=== PATIENT | male | born 1960 | race Caucasian/White ===

== ENCOUNTER 2016-05-07 12:18 | Emergency (ER) | payer OTHER ==
[2016-05-07 12:34] VITALS: BP 117/89; PULSE 76; RESP 20; TEMP 98.5
--- NOTE | 2016-05-07 13:39 | ED ---
ENT HPI - General Chief complaint: ENT Stated complaint: ear pain Time Seen by Provider: 05/07/16 13:28 Source: patient, RN notes reviewed Mode of arrival: ambulatory Limitations: no limitations - History of Present Illness Initial comments: 56-year-old male presents emergency Department chief complaint right ear pain. Patient states his been drainage of last 2-3 days. Patient states her some discomfort. Denies any pain behind his ear. Denies headache, dizziness, fever , chills, neck pain. Patient states she has NO KNOWN DRUG ALLERGIES. Patient denies any other complaints. - Related Data Previous Rx's Medication Instructions Recorded Amoxicillin/Potassium Clav 1 tab PO Q12HR #20 tab 05/07/16 [Augmentin 875-125 Tablet] Ofloxacin 0.3% Ophth Soln [Ocuflox 10 drops RIGHT EAR BID #1 bottle 05/07/16 Ophth Soln] Review of Systems ROS Statement: Those systems with pertinent positive or pertinent negative responses have been documented in the HPI. ROS Other: All systems not noted in ROS Statement are negative. Past Medical History Past Medical History: No Reported History History of Any Multi-Drug Resistant Organisms: None Reported Past Surgical History: No Surgical Hx Reported Past Psychological History: No Psychological Hx Reported Smoking Status: Never smoker Past Alcohol Use History: None Reported Past Drug Use History: None Reported General Exam Limitations: no limitations General appearance: alert, in no apparent distress Head exam: Present: atraumatic, normocephalic, normal inspection Eye exam: Present: normal appearance, PERRL, EOMI. Absent: scleral icterus, conjunctival injection, periorbital swelling ENT exam: Present: mucous membranes moist, other (No mastoid tenderness). Absent: normal oropharynx, TM's normal bilaterally (Mild erythema to the right TM), normal external ear exam (Erythema, swelling noted to the right EAC) Neck exam: Present: normal inspection, full ROM. Absent: tenderness, meningismus, lymphadenopathy Respiratory exam: Present: normal lung sounds bilaterally. Absent: respiratory distress, wheezes, rales, rhonchi, stridor Cardiovascular Exam: Present: regular rate, normal rhythm, normal heart sounds. Absent: systolic murmur, diastolic murmur, rubs, gallop, clicks Course Vital Signs 05/07/16 12:33 Temperature 98.5 F Pulse Rate 76 Respiratory 20 Rate Blood Pressure 117/89 O2 Sat by Pulse 98 Oximetry Medical Decision Making - Medical Decision Making 48-year-old male presented for right ear pain. Patient has otitis media minimally with primary otitis externa. Patient was started on oral and drops antibiotics. Patient will follow-up with ENT return parameters were discussed. Disposition Clinical Impression: Otitis media, Otitis externa Disposition: HOME SELF-CARE Condition: Stable Instructions: Otitis Externa (ED) Additional Instructions: Please return to the Emergency Department if symptoms worsen or any other concerns. Prescriptions: Amoxicillin/Potassium Clav [Augmentin 875-125 Tablet] 1 tab PO Q12HR #20 tab Ofloxacin 0.3% Ophth Soln [Ocuflox Ophth Soln] 10 drops RIGHT EAR BID #1 bottle Time of Disposition: 13:39
== END 2016-05-07 13:54 | disposition home or self-care (01) ==
LOC: EC 12:18
DX: H66.91 Otitis media, unspecified, right ear (principal); H60.91 Unspecified otitis externa, right ear
CPT/HCPCS: 99282

== ENCOUNTER 2016-08-26 20:55 | Emergency (ER) | payer OTHER ==
[2016-08-26] MEDS ORDERED: IBUPROFEN 600 MG TAB PO STA (21:05)
[2016-08-26] MEDS ORDERED: HYDROcodone/APAP 5-325MG 1 EACH TAB PO STA (21:05)
[2016-08-26] MEDS ORDERED: DIPH,PERTUS(ACELL)TETVAC-LF 0.5 ML VIAL IM ONE (21:05)
[2016-08-26 21:06] VITALS: BP 141/83; PULSE 89; RESP 18; TEMP 97.8
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
== END 2016-08-26 21:31 | disposition home or self-care (01) ==
LOC: EC 20:55
DX: T23.272A Burn of second degree of left wrist, initial encounter (principal); T22.112A Burn of first degree of left forearm, initial encounter; T31.0 Burns involving less than 10% of body surface; F32.9 Major depressive disorder, single episode, unspecified; Z23 Encounter for immunization; Z79.899 Other long term (current) drug therapy; X12.XXXA Contact with other hot fluids, initial encounter
CPT/HCPCS: 90471; 90715; 99283

== ENCOUNTER 2016-10-15 21:54 | Emergency (ER) | payer OTHER ==
[2016-10-15 22:04] VITALS: BP 126/78; PULSE 87; RESP 18; TEMP 98.8
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
== END 2016-10-15 22:24 | disposition home or self-care (01) ==
LOC: EC 21:54
DX: S61.213A Laceration without foreign body of left middle finger without damage to nail, initial encounter (principal); F17.200 Nicotine dependence, unspecified, uncomplicated; Z79.899 Other long term (current) drug therapy; W45.8XXA Other foreign body or object entering through skin, initial encounter; Y92.009 Unspecified place in unspecified non-institutional (private) residence as the place of occurrence of the external cause
CPT/HCPCS: 99282

== ENCOUNTER → 2016-11-04 | Outpatient (CLI) | payer OTHER ==
--- NOTE | 2016-11-04 11:58 | XR ---
Right hip HISTORY: Right hip pain 2 views of the right No comparisons Bone mineralization, joint spaces and alignment are maintained. No fracture or dislocation. Soft tiss ues are unremarkable IMPRESSION: No significant abnormalities evident.
--- NOTE | 2016-11-04 11:59 | XR ---
Lumbosacral spine HISTORY: Low back pain 5 views of the lumbar spine No comparisons There is no spondylolysis or spondylolisthesis. Lumbar vertebral bodies show preserved height and bon e mineralization. No paraspinal mass. There is multilevel spondylosis. Mild loss of disc height at th e intervertebral levels L2-3, L3-4. Sclerosis present in the posterior elements lower lumbar spine. V ascular calcifications present within the abdominal aorta. IMPRESSION: Degenerative disc disease and facet arthropathy. Additional findings above.
== END | disposition home or self-care (01) ==
LOC: RADXRMAIN 11:11
PROVIDERS: ATTEND Family Medicine
DX: M51.37 Other intervertebral disc degeneration, lumbosacral region (principal); M46.07 Spinal enthesopathy, lumbosacral region; M25.551 Pain in right hip
CPT/HCPCS: 72110; 73502

== ENCOUNTER 2017-02-04 14:38 | Emergency (ER) | payer OTHER ==
[2017-02-04 14:44] VITALS: TEMP 98.8
[2017-02-04 15:30] LABS: Basophils # (A) 0.1 k/uL (0-0.2); Basophils % (A) 1 %; CH 33.1; CHCM 33.6; Eosinophils # (A) 0.7 k/uL (0-0.7); Eosinophils % (A) 7 %; HCT 46.5 % (39.0-53.0); HDW 2.38; HGB 15.4 gm/dL (13.0-17.5); Luc # (Auto) 0.13; Luc % (Auto) 1; Lymphocytes # (A) 2.6 k/uL (1.0-4.8); Lymphocytes % (A) 28 %; MCH 32.7 pg (25.0-35.0); Mean Platelet Volume 7.7; Monocytes # (A) 0.6 k/uL (0-1.0); Monocytes % (A) 6 %; Neutrophils # (A) 5.2 k/uL (1.3-7.7); Neutrophils % (A) 56 %; RDW 14.4 % (11.5-15.5); WBC 9.2 k/uL (3.8-10.6); WBC (Perox) 9.12
--- NOTE | 2017-02-04 15:35 | XR ---
EXAMINATION TYPE: XR chest 2V DATE OF EXAM: 02/04/2017 COMPARISON: NONE HISTORY: Chest pain for approximately 2 hours. TECHNIQUE: Frontal and lateral views of the chest are obtained. FINDINGS: There is no focal air space opacity, pleural effusion, or pneumothorax seen. The cardiac silhouette size is within normal limits. The osseous structures are intact. Multilevel mild degener ative changes of the thoracic spine are noted. Minimal degenerative changes of the acromio clavicular joints are also seen. IMPRESSION: No acute cardiopulmonary process.
[2017-02-04 15:38] VITALS: RESP 17
[2017-02-04 15:44] LABS: Partial Thromboplastin Time 23.8 sec (22.0-30.0); Prothrombin Time 9.9 sec (9.0-12.0)
[2017-02-04 15:50] LABS: ALT 34 U/L (21-72); AST 25 U/L (17-59); Alkaline Phosphatase 68 U/L (38-126); Amylase 82 U/L (30-110); Anion Gap 8 mmol/L; Blood Urea Nitrogen 25 mg/dL (9-20); Calcium 9.2 mg/dL (8.4-10.2); Carbon Dioxide 21 mmol/L (22-30); Chloride 109 mmol/L (98-107); Glucose 104 mg/dL (74-99); Non-African American GFR(MDRD) >60 (>60 ml/min/1.73 sqM); Potassium 4.5 mmol/L (3.5-5.1); Sodium 138 mmol/L (137-145); Total Bilirubin 0.4 mg/dL (0.2-1.3); Total Protein 6.7 g/dL (6.3-8.2)
--- NOTE | 2017-02-04 15:54 | ED ---
General Adult HPI - General Chief complaint: Urogenital Stated complaint: abdominal pain/male Time Seen by Provider: 02/04/17 14:50 Source: patient, RN notes reviewed Mode of arrival: ambulatory Limitations: no limitations - History of Present Illness Initial comments: chief complaint and history of present illness this is a 48-year-old male with 2 complaints the first one is discomfort and swelling to the right testicular area. The patient reports for the past several days he is having frequent coughing from bronchitis she started having discomfort in the right inguinal canal. This morning when he awakened he said he couldn't really feel his right testicle. Also when he squeezed on the area he could feel and hear with significant gurgling sound. It appears though the patient on oh reduced a sliding hernia in the inguinal region. His testes normal now. Patient also reports proximal 90 minutes prior to coming emergency room started having left sided chest pain point specific. Comes and goes. Not increased by twisting turning coughing or movement. No associated radiation, no diaphoresis. He reproduced. Patient denies cardiac issues. - Related Data Home Medications Medication Instructions Recorded Confirmed Mirtazapine [Remeron] 45 mg PO HS PRN 08/21/16 02/04/17 Bee Pollen 550 mg PO DAILY 02/04/17 02/04/17 Gabapentin [Neurontin] 300 mg PO DAILY PRN 02/04/17 02/04/17 Turmeric Root Extract [Turmeric] 500 mg PO DAILY 02/04/17 02/04/17 Zinc 50 mg PO DAILY 02/04/17 02/04/17 Previous Rx's Medication Instructions Recorded Ibuprofen [Motrin] 600 mg PO Q6HR PRN #20 tab 02/04/17 Allergies Allergy/AdvReac Type Severity Reaction Status Date / Time No Known Allergies Allergy Verified 02/04/17 14:53 Review of Systems ROS Statement: Those systems with pertinent positive or pertinent negative responses have been documented in the HPI. review of systems currently no complaint of visual acuity changes no headache no chest pain at this time. He points to over a specific area on the costochondral angle just lateral to the sternum. No rash noted. not able to reproduce the pain with deep breathing coughing or palpation of the area. No GI / problems this time. No difficulty of bowel movements or urination. The discomfort he has when he coughs is to the right inguinal ring area. No bulge is noted this time. No neuro deficits. All systems are reviewed. patient denies any past medical problems. Family history is significant for both parents having colon cancer. Patient reports she has had one colonoscopy. He was advised to talk to his family physician about a regular colonoscopies. The patient's denying any surgeries. Denies ALLERGIES does smoke strongly encouraged to stop denies alcohol use. ROS Other: All systems not noted in ROS Statement are negative. Past Medical History Past Medical History: No Reported History History of Any Multi-Drug Resistant Organisms: None Reported Past Surgical History: No Surgical Hx Reported Additional Past Surgical History / Comment(s): COLONOSCOPY Past Anesthesia/Blood Transfusion Reactions: No Reported Reaction Past Psychological History: Depression Smoking Status: Current some day smoker Past Alcohol Use History: None Reported Past Drug Use History: None Reported - Past Family History Mother Family Medical History: Cancer Father Family Medical History: Cancer Brother(s) Family Medical History: Cancer General Exam - General Exam Comments Initial Comments: General: The patient is awake and alert, in no distress, and does not appear acutely ill. the right inguinal discomfort has subsided. His on-again off-again point specific left-sided chest discomfort currently gone. Vital signs shows temperature 98.8 pulse 77 respiratory rate 16 pulse ox 90% room air blood pressure 134/73. Eye: Pupils are equal, round and reactive to light, extra-ocular movements are intact ; there is normal conjunctiva bilaterally. No signs of icterus. Ears, nose, mouth and throat: There are moist mucous membranes and no oral lesions. Neck: The neck is supple, there is no tenderness . Cardiovascular: There is a regular rate and rhythm. No murmur, rub or gallop is appreciated. Respiratory: Lungs are clear to auscultation, respirations are non-labored, breath sounds are equal. No wheezes, stridor, rales, or rhonchi.1 specific area of discomfort that he can put one finger on on the left lower anterior rib cage. Not reducible, no rashes noted. No bruising. Patient reports she has been coughing quite a bit lately. Gastrointestinal: Soft, non-distended, non-tender abdomen without masses or organomegaly noted. There is no rebound or guarding present. No CVA tenderness. Bowel sounds are unremarkable.patient has a sliding right inguinal hernia. Testes bilaterally normal. Nontender at this time. Back: There is no tenderness to palpation in the midline. There is no obvious deformity. No rashes noted. Musculoskeletal: Normal ROM, no tenderness, There is no pedal edema. There is no calf tenderness or swelling. Sensation intact. Neurological: no evidence of or any complaints of any neuro deficits. Skin: Skin is warm and dry and no rashes or lesions are noted. Psychiatric: Cooperative, appropriate mood & affect, normal judgment. Limitations: no limitations Course Vital Signs 02/04/17 02/04/17 14:39 15:37 Temperature 98.8 F Pulse Rate 77 74 Respiratory 16 17 Rate Blood Pressure 134/73 131/82 O2 Sat by Pulse 98 98 Oximetry EKG Findings - EKG Comments: EKG Findings:: EKG was done and reviewed at 1510 showing normal sinus rhythm no acute ST elevation no ectopy no ischemic changes. Rate 75 when necessary was 148 QRS 78 QT [address] Crandall no old EKG available to compare to at this time. Medical Decision Making - Medical Decision Making Chest x-ray was done AP and lateral views and reviewed by radiologist her full report was reviewed her final impression is; no acute cardiopulmonary process. As dictated by Dr. Hicks labs show white count 9.2 hemoglobin 15 hematocrit of 46, his lipase within normal limits. Potassium 4.5. BUN 24 creatinine 1.1 and GFR greater than 60. CK 128 troponin less than 0.012. The patient has not had any chest pain while in emergency room. He thinks the discomfort is complaining of is due to frequent coughing with his bronchitis which is been treated for for the past 30 days. The patient was advised to call follow-up with family physician for further evaluation certainly to return emergency room if the nature of the pain changes whatsoever and we discussed appropriate for anterior chest wall pain. - Lab Data Result diagrams: 02/04/17 15:19 02/04/17 15:19 Lab Results 02/04/17 02/04/17 02/04/17 Range/Units 15:19 15:19 15:19 WBC 9.2 (3.8-10.6) k/uL RBC 4.70 (4.30-5.90) m/uL Hgb 15.4 (13.0-17.5) gm/dL Hct 46.5 (39.0-53.0) % MCV 99.0 (80.0-100.0) fL MCH 32.7 (25.0-35.0) pg MCHC 33.0 (31.0-37.0) g/dL RDW 14.4 (11.5-15.5) % Plt Count 260 (150-450) k/uL Neutrophils % 56 % Lymphocytes % 28 % Monocytes % 6 % Eosinophils % 7 % Basophils % 1 % Neutrophils # 5.2 (1.3-7.7) k/uL Lymphocytes # 2.6 (1.0-4.8) k/uL Monocytes # 0.6 (0-1.0) k/uL Eosinophils # 0.7 (0-0.7) k/uL Basophils # 0.1 (0-0.2) k/uL Sodium 138 (137-145) mmol/L Potassium 4.5 (3.5-5.1) mmol/L Chloride 109 H (98-107) mmol/L Carbon Dioxide 21 L (22-30) mmol/L Anion Gap 8 mmol/L BUN 25 H (9-20) mg/dL Creatinine 1.10 (0.66-1.25) mg/dL Est GFR (MDRD) Af Amer >60 (>60 ml/min/1.73 sqM) Est GFR (MDRD) Non-Af >60 (>60 ml/min/1.73 sqM) Glucose 104 H (74-99) mg/dL Calcium 9.2 (8.4-10.2) mg/dL Magnesium 2.0 (1.6-2.3) mg/dL Total Bilirubin 0.4 (0.2-1.3) mg/dL AST 25 (17-59) U/L ALT 34 (21-72) U/L Alkaline Phosphatase 68 (38-126) U/L Total Creatine Kinase 128 (55-170) U/L CK-MB (CK-2) 1.7 (0.0-2.4) ng/mL CK-MB (CK-2) Rel Index 1.3 Troponin I <0.012 (0.000-0.034) ng/mL Total Protein 6.7 (6.3-8.2) g/dL Albumin 3.9 (3.5-5.0) g/dL Amylase 82 (30-110) U/L Lipase 120 (23-300) U/L Disposition Clinical Impression: Inguinal hernia, right, Costochondritis, acute Disposition: HOME SELF-CARE Condition: Fair Instructions: Inguinal Hernia (ED), Costochondritis (ED) Additional Instructions: Follow-up with your family doctor and discuss possible hernia repair with a general surgeon. Use ibuprofen for discomfort. Chest wall pain. Return emergency room if he develop any significant change in her chest pain. Prescriptions: Ibuprofen [Motrin] 600 mg PO Q6HR PRN #20 tab PRN Reason: Pain Referrals: Ant Kilpatrick MD [Primary Care Provider] - 1-2 days Time of Disposition: 16:28
[2017-02-04 15:58] LABS: Creatine Kinase 128 U/L (55-170)
[2017-02-04 16:11] LABS: Creatine Kinase MB 1.7 ng/mL (0.0-2.4); Troponin I <0.012 ng/mL (0.000-0.034)
[2017-02-04 16:31] VITALS: BP 134/86; PULSE 69
== END 2017-02-04 16:37 | disposition home or self-care (01) ==
LOC: EC 14:38
DX: K40.90 Unilateral inguinal hernia, without obstruction or gangrene, not specified as recurrent (principal); M94.0 Chondrocostal junction syndrome [Tietze]; F32.9 Major depressive disorder, single episode, unspecified; F17.200 Nicotine dependence, unspecified, uncomplicated; Z98.890 Other specified postprocedural states; Z79.899 Other long term (current) drug therapy
CPT/HCPCS: 36415; 71020; 80053; 82150; 82550; 82553; 83690; 83735; 84484; 85025; 85379; 85610; 85730; 93005; 99284

== ENCOUNTER 2017-03-04 11:58 | Day surgery (SDC) | payer OTHER ==
[~2017-03-04 11:58] MED LIST: DEXAMETHASONE SOD PHOSPHATE 10 MG/ML 1 ML VIAL IV ONE; MIDAZOLAM 2 MG/2 ML VIAL IV PRN; Pre Op ABX Message 1 EACH MISC MISCELLANE ONE; SCOPOLAMINE 1.5MG/72HR PATCH TRANSDERM ONE
[2017-03-04] MEDS: LACTATED RINGERS 1,000 ML IV SCH ×2 (12:40→12:43)
[2017-03-04] MEDS: LIDOCAINE 1% 20 ML VIAL (10MG/ML) FOR IV START INTRADERMA PRN ×2 (12:44→12:45)
[2017-03-04] MEDS ORDERED: METOCLOPRAMIDE 5 MG/ML 2 ML VIAL IVP ONE (12:46)
[2017-03-04] MEDS: ONDANSETRON 4 MG/2 ML VIAL IVP ONE ×2 (12:46→17:45)
[2017-03-04] MEDS ORDERED: GLYCOPYRROLATE 0.2 MG/ML 2 ML VIAL ONE (13:22)
[2017-03-04] MEDS ORDERED: ROCURONIUM BROMIDE 10 MG/ML 10 ML VIAL IV ONE (13:22)
[2017-03-04] MEDS ORDERED: SUCCINYLCHOLINE CHLORIDE 100 MG/5 ML SYR IV ONE (13:22)
[2017-03-04] MEDS ORDERED: NEOSTIGMINE 1 MG/ML 10 ML VIAL ONE (13:22)
[2017-03-04] MEDS ORDERED: MIDAZOLAM 2 MG/2 ML VIAL ONE (13:22)
[2017-03-04] MEDS ORDERED: fentaNYL (PF) 50 MCG/ML 2 ML AMP ONE (13:22)
[2017-03-04] MEDS ORDERED: KETOROLAC 30 MG/ML 1 ML VIAL ONE (13:22)
[2017-03-04] MEDS ORDERED: HYDROmorphone (PF) 1 MG/ML ONE (13:22)
[2017-03-04] MEDS ORDERED: PROPOFOL 10 MG/ML 20 ML VIAL IV ONE (13:22)
[2017-03-04] MEDS ORDERED: BUPIVACAIN-EPI 0.5%-1:200,000 30 ML VIAL SQ ONE ×2 (13:41)
[2017-03-04] MEDS ORDERED: LACTATED RINGERS 1,000 ML IV ONE (15:06)
--- NOTE | 2017-03-04 16:20 | P.OP ---
Date of Procedure: 03/04/17 Preoperative Diagnosis: Bilateral inguinal hernia Postoperative Diagnosis: Bilateral indirect inguinal hernia Procedure(s) Performed: Bilateral inguinal herniorrhaphy with mesh, robotic, umbilical herniorrhaphy Anesthesia: HAYLEY Surgeon: Carolann Jorge Pathology: none sent Condition: stable Disposition: PACU Indications for Procedure: The patient presented with a symptomatic right hernia, a small left inguinal hernia and a small umbilical hernia Description of Procedure: The patient is taken to the OR were inspected draped in the usual sterile manner. A small infraumbilical incision was made. Some incarcerated preperitoneal fat was dissected free. It's removed with cautery. There is a 5- 7 mm fascial defect. A varies needle was placed. Pneumoperitoneum was established with CO2 gas. A trochars placed through the small umbilical fascial defect. Sites are chosen for accessory trochars needs are placed through small skin incisions. She abdominal pelvic contents were examined with findings of a moderately large right indirect hernia small left indirect hernia. The robot is docked. Starting on the left side, the peritoneum is incised with cautery. The peritoneal flap is then dissected off the underlying transversalis fascia, inferior epigastric vessels, cord and cord structures. The preperitoneal space is dissected medially to the pubic tubercle. Once adequate dissection was carried out, attention was turned to the right side. The peritoneum was then again incised. The peritoneal flap is dissected free. Then tediously, a indirect hernia sac and cord lipoma was dissected free from the cord and cord structures. The pubic tubercle was dissected free and the inferior epigastrics were clearly seen. Once adequate dissection was carried out, A progrip mesh was trimmed, (15 x 10 cm). Both mesh were then placed into the abdominal cavity. Starting on the right side, the mesh was unrolled and placed over the appropriate structures. They gave good under coverage for any potential direct, indirect or femoral hernia defect. The peritoneum was then closed with 2-0 vlock suture. The procedure was completed in a similar manner on the left side. There was no visualized mesh that would touch intraperitoneal structures. The pneumoperitoneum was then released. The trochars were removed. Irrigation at the umbilicus was closed with 0 Vicryl. The skin incisions were closed with 4-0 Vicryl in a subcuticular manner. Steri- Strips and dressings were applied. He tolerated the procedure without difficulty and was taken recovery room in satisfactory condition. According to or personnel all counts were correct. Plan - Discharge Summary New Discharge Prescriptions: New HYDROcodone/APAP 5-325MG [Jenks 5-325] 1 - 2 tab PO Q4H PRN #30 tab PRN Reason: Pain Naproxen [Naprosyn] 500 mg PO Q12HR PRN #60 tab PRN Reason: Pain No Action Mirtazapine [Remeron] 45 mg PO HS PRN PRN Reason: sleep Gabapentin [Neurontin] 300 mg PO DAILY PRN PRN Reason: Pain Ranitidine HCl [Zantac] 150 mg PO DAILY PRN PRN Reason: Heartburn Jenks(Unknown Dose) 1 tab PO Q4H PRN PRN Reason: Pain Discharge Medication List Mirtazapine [Remeron] 45 mg PO HS PRN 08/21/16 [History] Gabapentin [Neurontin] 300 mg PO DAILY PRN 02/04/17 [History] Ranitidine HCl [Zantac] 150 mg PO DAILY PRN 02/18/17 [History] Jenks(Unknown Dose) 1 tab PO Q4H PRN 03/03/17 [History] HYDROcodone/APAP 5-325MG [Jenks 5-325] 1 - 2 tab PO Q4H PRN #30 tab 03/04/17 [Rx ] Naproxen [Naprosyn] 500 mg PO Q12HR PRN #60 tab 03/04/17 [Rx] Follow up Appointment(s)/Referral(s): Carolann Jorge DO [Doctor of Osteopathic Medicine] - 2 Weeks Activity/Diet/Wound Care/Special Instructions: Ice to incisions 24 hours. Ice to scrotum 48 hours. After 48 hours the dressings may be removed, then you may shower. Lifting greater than 10 pounds. No tub bath or swimming for [address] Jorge in the office in 2 weeks. Call with questions or concerns. Discharge Disposition: HOME SELF-CARE
[2017-03-04 16:50] VITALS: TEMP 97.9
[2017-03-04] MEDS: HYDROmorphone 0.5 MG/0.5 ML SYRINGE IVP PRN ×2 (16:50→16:55)
[2017-03-04 17:57] VITALS: RESP 18
[2017-03-04] MEDS ORDERED: HYDROcodone/APAP 5-325MG 1 EACH TAB PO ONE (18:19)
[2017-03-04 18:23] VITALS: PULSE 88
[2017-03-04 19:14] VITALS: BP 129/69
== END 2017-03-04 19:50 | disposition home or self-care (01) ==
LOC: OR 11:58
PROVIDERS: ATTEND Surgery
DX: K40.20 Bilateral inguinal hernia, without obstruction or gangrene, not specified as recurrent (principal); K42.0 Umbilical hernia with obstruction, without gangrene; D17.6 Benign lipomatous neoplasm of spermatic cord; F32.9 Major depressive disorder, single episode, unspecified; F17.200 Nicotine dependence, unspecified, uncomplicated; Z79.899 Other long term (current) drug therapy; Z80.0 Family history of malignant neoplasm of digestive organs; Z88.8 Allergy status to other drugs, medicaments and biological substances
CPT/HCPCS: 49650; 49653; C1781; J2250; J1100; J2710; J2765; J2405; J3010; J1885; J1170 ×2; J0330; J2704

== ENCOUNTER 2017-06-01 17:47 | Emergency (ER) | payer OTHER ==
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
--- NOTE | 2017-06-01 18:41 | XR ---
PROCEDURE: XR foot complete RT - 3 views DATE AND TIME: 06/01/2017 6:28 PM REFERRING PHYSICIAN: Jose Allison CLINICAL INDICATION: PHH, Pain TECHNIQUE: Department protocol. COMPARISON: None FINDINGS: There is no fracture or malalignment. The soft tissues are unremarkable. IMPRESSION: NO ACUTE PROCESS.
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
--- NOTE | 2017-06-01 20:00 | CT ---
EXAMINATION: CT brain wo con DATE AND TIME: 06/01/2017 7:42 PM ORDERING PROVIDER: Silvana Robison CLINICAL INDICATION: Pain TECHNIQUE: Standard departmental protocol. COMPARISON: None. DESCRIPTION: The calvarium is intact. There is no intracranial hemorrhage. There is no mass or mass e ffect. There is no definite new attenuation defect. Remainder of the intra-axial and extra-axial comp artment examination is unremarkable. The paranasal sinuses, middle ear cavities, and mastoid sinus ai r cells are clear. The orbits are intact. IMPRESSION: NO ACUTE PROCESS.
--- NOTE | 2017-06-01 20:48 | XR ---
PROCEDURE: XR Hip RT and AP Pelvis, 3 views DATE AND TIME: 06/01/2017 7:37 PM REFERRING PHYSICIAN: Silvana Robison CLINICAL INDICATION: PHH, Pain TECHNIQUE: Department protocol. COMPARISON: None FINDINGS: There is no fracture or malalignment. The soft tissues are unremarkable. IMPRESSION: NO ACUTE PROCESS.
[2017-06-01 21:22] VITALS: BP 121/69; PULSE 70; RESP 16; TEMP 97.9
== END 2017-06-01 21:22 | disposition home or self-care (01) ==
LOC: EC 17:47
DX: S06.0X0A Concussion without loss of consciousness, initial encounter (principal); S70.01XA Contusion of right hip, initial encounter; S90.31XA Contusion of right foot, initial encounter; H53.8 Other visual disturbances; E78.5 Hyperlipidemia, unspecified; K21.9 Gastro-esophageal reflux disease without esophagitis; F17.200 Nicotine dependence, unspecified, uncomplicated; Z79.899 Other long term (current) drug therapy; Z88.8 Allergy status to other drugs, medicaments and biological substances; Z91.048 Other nonmedicinal substance allergy status; V49.40XA Driver injured in collision with unspecified motor vehicles in traffic accident, initial encounter; Y92.410 Unspecified street and highway as the place of occurrence of the external cause
CPT/HCPCS: 70450; 73502; 99284

== ENCOUNTER 2017-09-25 10:05 | Emergency (ER) | payer OTHER ==
[2017-09-25 10:19] VITALS: BP 126/84; PULSE 75; RESP 18; TEMP 98.4
--- NOTE | 2017-09-25 10:42 | ED ---
General Adult HPI - General Chief complaint: Skin/Abscess/Foreign Body Stated complaint: Bumps on hand and face Time Seen by Provider: 09/25/17 10:24 Source: patient Mode of arrival: ambulatory Limitations: no limitations - History of Present Illness Initial comments: This 57-year-old white male presents with a complaint of some slight swelling and erythema underneath his left eye as well as to his right hand. He states that this is been present for approximately one week. He is unsure if the obtained a spider or insect bite to the areas. There is some mild itching. There is no drainage. He denies any previous similar incidents[place] - Related Data Previous Rx's Medication Instructions Recorded Sulfamethox-Tmp 800-160Mg [Bactrim 1 tab PO Q12HR #14 tab 09/25/17 DS 800-160 mg] predniSONE 20 mg PO BID #14 tab 09/25/17 Allergies Allergy/AdvReac Type Severity Reaction Status Date / Time quetiapine [From Seroquel] Allergy Swelling Verified 09/25/17 10:26 dust Allergy Unknown Uncoded 09/25/17 10:19 Review of Systems ROS Statement: Those systems with pertinent positive or pertinent negative responses have been documented in the HPI. ROS Other: All systems not noted in ROS Statement are negative. Past Medical History Past Medical History: GERD/Reflux, Hyperlipidemia, Hypertension Additional Past Medical History / Comment(s): "hives from nerves", History of Any Multi-Drug Resistant Organisms: None Reported Past Surgical History: No Surgical Hx Reported Additional Past Surgical History / Comment(s): COLONOSCOPY, hemorrhoidectomy, mack laser eye surgery Past Anesthesia/Blood Transfusion Reactions: No Reported Reaction Past Psychological History: Anxiety Smoking Status: Current some day smoker Past Alcohol Use History: None Reported Past Drug Use History: None Reported - Past Family History Mother Family Medical History: Cancer Father Family Medical History: Cancer Brother(s) Family Medical History: Cancer General Exam Limitations: no limitations Skin exam: Present: rash (There is a small area of erythema measuring approximately 1 cm x 1 cm underneath the left eye. There is no fluctuance or drainage. This is nontender. There is a similar area present to the right hand on the dorsal surface.) Course Vital Signs 09/25/17 10:17 Temperature 98.4 F Pulse Rate 75 Respiratory 18 Rate Blood Pressure 126/84 O2 Sat by Pulse 97 Oximetry Medical Decision Making - Medical Decision Making The patient was seen and examined. He is worried about infection. The possibility of a slight infection is possible but is felt that it likely is more of a inflammatory condition. The possibility of some contact dermatitis versus an insect sting this certainly is possible. This felt as though he stable for discharge with findings disposition and leaves in no distress. Disposition Clinical Impression: Rash Disposition: HOME SELF-CARE Condition: Good Instructions: Acute Rash (ED) Prescriptions: predniSONE 20 mg PO BID #14 tab Sulfamethox-Tmp 800-160Mg [Bactrim DS 800-160 mg] 1 tab PO Q12HR #14 tab Is patient prescribed a controlled substance at d/c from ED?: No Referrals: None,Stated [Primary Care Provider] - 1-2 days Time of Disposition: 10:39
== END 2017-09-25 10:55 | disposition home or self-care (01) ==
LOC: EC 10:05
DX: R21 Rash and other nonspecific skin eruption (principal); R22.0 Localized swelling, mass and lump, head; F17.200 Nicotine dependence, unspecified, uncomplicated; Z91.09 Other allergy status, other than to drugs and biological substances; Z88.8 Allergy status to other drugs, medicaments and biological substances
CPT/HCPCS: 99283

== ENCOUNTER → 2017-12-18 | Outpatient (CLI) | payer OTHER ==
--- NOTE | 2017-12-18 12:44 | CT ---
EXAMINATION TYPE: CT brain w con DATE OF EXAM: 12/18/2017 COMPARISON: 06/01/2017 HISTORY: Memory changes CT DLP: 1177 mGycm Automated Exposure Control for Dose Reduction was Utilized. TECHNIQUE: CT scan of the head is performed with IV contrast.,CT scan of the head is performed with w ith IV Contrast, patient injected with 100 mL of Isovue 300. 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 No hy drocephalus as the ventricles and sulci are within normal limits in size. Postcontrast images show no suspicious enhancing intraparenchymal mass. The globes are intact. Scant mucosal thickening is seen within the ethmoid and maxillary sinuses. Mastoid air cells and sphenoid sinus as well as the right f rontal sinus are well aerated. 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 IMPRESSION: 1. 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 This ca n cause Parinaud's syndrome. No resultant occlusion of the cerebral aqueduct or hydrocephalus. 2. No intracranial enhancing mass. No midline shift.
== END | disposition home or self-care (01) ==
LOC: RADCTMAIN 11:30
PROVIDERS: ATTEND Internal Medicine
DX: G93.0 Cerebral cysts (principal)
CPT/HCPCS: 70460; Q9967

== ENCOUNTER → 2018-01-21 | Outpatient (CLI) | payer OTHER ==
--- NOTE | 2018-01-21 13:49 | CT ---
EXAMINATION TYPE: CT brain w con DATE OF EXAM: 01/21/2018 COMPARISON: 12/18/2017 HISTORY: Memory loss, eye twitching, imbalance CT DLP: 1072.3 mGycm Automated exposure control for dose reduction was used. CONTRAST: CT scan of the head is performed with IV Contrast, patient injected with 100 mL of Isovue 300. FINDINGS: There is normal preservation of the sarah-white matter differentiation. No abnormal hyperdensity is pr esent to suggest an acute intracranial hemorrhage. No mass lesion is evident. The 1.1 cm pineal cyst is again evident. No enhancing lesions are evident. No acute infarcts are evident. Ventricles and sul ci are appropriate for the patient age. Paranasal sinuses have mild mucosal thickening within ethmoid air cells. There is left septal deviati on. Paranasal sinuses and mastoid air cells are otherwise clear. IMPRESSION: 1. Negative post contrast CT brain
== END | disposition home or self-care (01) ==
LOC: RADCTMAIN 12:52
PROVIDERS: ATTEND Internal Medicine
DX: R41.0 Disorientation, unspecified (principal)
CPT/HCPCS: 70460; Q9967

== ENCOUNTER 2018-10-29 13:57 | Emergency (ER) | payer OTHER ==
[2018-10-29 14:01] VITALS: BP 124/76; PULSE 62; RESP 18; TEMP 98.5
--- NOTE | 2018-10-29 14:21 | ED ---
Skin/Abscess/FB HPI - General Chief complaint: Skin/Abscess/Foreign Body Stated complaint: insect bite Time Seen by Provider: 10/29/18 14:06 Source: patient Mode of arrival: ambulatory Limitations: no limitations - History of Present Illness Initial comments: 58yo male presenting for insect bites. Patient states about a day and a half ago he was doing yard work near a pine tree when he was attacked by a group of bugs he was unable to identify them he does not know if there ticks Beadles mosquitoes flies. He did not notice any dog stuck on his skin brought into his skin or any engorged ticks. Patient states that the area where the insects have been him mostly on the lower legs are itchy and he has been scratching at them. Patient states there is some mild surrounding redness they have but at times from itching. Patient denies any fever or chills night sweats or any other concerning signs or symptoms denies history of diabetes. Patient has no other complaints today remaining review of system negative. Patient appears well upon arrival - Related Data Home Medications Medication Instructions Recorded Confirmed Aspirin 81 mg PO DAILY 10/29/18 10/29/18 Previous Rx's Medication Instructions Recorded Bacitracin Oint 1 applic TOPICAL BID 5 Days #1 tube 10/29/18 Allergies Allergy/AdvReac Type Severity Reaction Status Date / Time quetiapine [From Seroquel] Allergy Swelling Verified 10/29/18 14:01 dust Allergy Unknown Uncoded 10/29/18 14:01 Review of Systems ROS Statement: Those systems with pertinent positive or pertinent negative responses have been documented in the HPI. ROS Other: All systems not noted in ROS Statement are negative. Past Medical History Past Medical History: GERD/Reflux, Hyperlipidemia, Hypertension Additional Past Medical History / Comment(s): "hives from nerves", History of Any Multi-Drug Resistant Organisms: None Reported Past Surgical History: No Surgical Hx Reported Additional Past Surgical History / Comment(s): COLONOSCOPY, hemorrhoidectomy, mack laser eye surgery Past Anesthesia/Blood Transfusion Reactions: No Reported Reaction Past Psychological History: Anxiety Smoking Status: Current some day smoker Past Alcohol Use History: None Reported Past Drug Use History: None Reported - Past Family History Mother Family Medical History: Cancer Father Family Medical History: Cancer Brother(s) Family Medical History: Cancer General Exam - General Exam Comments Initial Comments: General: The patient is awake and alert, in no distress, and does not appear acutely ill. Eye: Pupils are equal, round and reactive to light, extra-ocular movements are intact. No nystagmus. There is normal conjunctiva bilaterally. No signs of icterus. Neurological: A&O x 3. CN II-XII intact, There are no obvious motor or sensory deficits. Coordination appears grossly intact. Speech is normal. Skin: Skin is warm and dry and no rashes. 2, 1cm circular erythematous with some excoriation lesions, not raised. no diffuse eerythema, no warmth no drainage, no palpable fluctulance. One located on posterior right calf, the other posterior left calf. Psychiatric: Cooperative, appropriate mood & affect, normal judgment. Limitations: no limitations Course Vital Signs 10/29/18 13:58 Temperature 98.5 F Pulse Rate 62 Respiratory 18 Rate Blood Pressure 124/76 O2 Sat by Pulse 99 Oximetry Medical Decision Making - Medical Decision Making 58-year-old male presenting for evaluation of insect bites. There is 2 lesions on the calves bilaterally. There is no signs of secondary infection some mild excoriation. No evidence of foreign body. No fluctuance drainage purulence. No warmth. Patient is afebrile appearing well denies engorgement of tick or noticing the insect on his skin. The bites at the time of occurrence. At this time I feel findings are consistent with insect bites, no convincing evidence of infection. Patient will be given topical bacitracin and PCP f/u. Patient agreeable with care plan. return parameters discussed. Discharged appearing well. Disposition Clinical Impression: Insect bite Disposition: HOME SELF-CARE Condition: Good Instructions (If sedation given, give patient instructions): Insect Bite or Sting (ED) Additional Instructions: Please use medication as discussed. Please return to emergency room if the symptoms increase or worsen or for any other concerns, spreading of redness, increasing pain, warmth, fevers. Prescriptions: Bacitracin Oint 1 applic TOPICAL BID 5 Days #1 tube Is patient prescribed a controlled substance at d/c from ED?: No Referrals: None,Stated [Primary Care Provider] - 1-2 days Time of Disposition: 14:21
== END 2018-10-29 14:34 | disposition home or self-care (01) ==
LOC: EC 13:57
DX: S80.862A Insect bite (nonvenomous), left lower leg, initial encounter (principal); S80.861A Insect bite (nonvenomous), right lower leg, initial encounter; F17.200 Nicotine dependence, unspecified, uncomplicated; Z79.82 Long term (current) use of aspirin; Z88.8 Allergy status to other drugs, medicaments and biological substances; Z91.048 Other nonmedicinal substance allergy status; W57.XXXA Bitten or stung by nonvenomous insect and other nonvenomous arthropods, initial encounter; Y93.89 Activity, other specified
CPT/HCPCS: 99282

== ENCOUNTER → 2020-07-02 | Outpatient (CLI) | payer OTHER ==
--- NOTE | 2020-07-02 14:01 | EST ---
EXERCISE STRESS DATE OF SERVICE: 07/02/2020. PERFORMING PHYSICIAN: Malvin Mueller MD AGE: 60 SEX: Male HT: 5'8" WT: 178 lbs. PROTOCOL: Kareem STAGE: 2 DURATION OF EXERCISE: 6 minutes HEART RATE REST: 70 BLOOD PRESSURE REST: 132/82 MAXIMUM HEART RATE ACHIEVED: 124 MAXIMUM BLOOD PRESSURE: 192/78 85% MPHR: 134 100% MPHR: 158 METS: 7.3 INDICATIONS: Chest pain CLINICAL INFORMATION: Pretesting physical examination showed a heart rate of 70, pressure is 132/82 mmHg. Baseline EKG showed sinus mechanism. The patient exercised on the treadmill according to Kareem protocol for a total of 6 minutes and achieved 7.3 METs. Max heart rate was 124, which is about 78% of maximum predicted heart rate. Maximum blood pressure was 192/78 mmHg. Clinically the patient did not have any symptoms of chest pain or chest discomfort, but he developed some shortness of breath and the test was stopped because of fatigue. The EKG showed about 0.[address]-segment depression. CONCLUSION: 1. Good exercise tolerance. 2. Overall nondiagnostic stress test because the patient achieved only 78% of maximum predicted heart rate. 3. The patient stopped the test because of like aching as well as difficulty in breathing. 4. Mild EKG changes in response to exercise. 5. I would advise obtaining different modality of stress test, probably non-exercise modality with imaging. MMODL / IJN: [id number] /
== END | disposition home or self-care (01) ==
LOC: RADNMMAIN 08:37
PROVIDERS: ATTEND Family Medicine
DX: R07.9 Chest pain, unspecified (principal)
CPT/HCPCS: 93017

== ENCOUNTER → 2020-08-28 | Outpatient (CLI) | payer OTHER ==
[~2020-08-28] MED LIST changes: -DEXAMETHASONE SOD PHOSPHATE 10 MG/ML 1 ML VIAL IV ONE; -MIDAZOLAM 2 MG/2 ML VIAL IV PRN; -Pre Op ABX Message 1 EACH MISC MISCELLANE ONE; +REGADENOSON 0.4 MG/5 ML SYRINGE IV PRN; -SCOPOLAMINE 1.5MG/72HR PATCH TRANSDERM ONE
--- NOTE | 2020-08-28 11:59 | NM ---
EXAMINATION TYPE: NM stress lexiscan cardiolite DATE OF EXAM: 08/28/2020 COMPARISON: NONE HISTORY: Chest pain TECHNIQUE: After the intravenous administration of 9.3 mCi Tc 99m Sestamibi - Cardiolite resting SPE CT images acquired 45 minutes post injection. The patient received 0.4mg Lexiscan, 25.2 mCi Tc 99m Sestamibi - Stress images obtained [address] injection FINDINGS: Review of stress and rest SPECT images demonstrates no distinct perfusion abnormality. Gated analysi s shows normal wall motion with an estimated left ventricular ejection fraction of 63 %. IMPRESSION: No scintigraphic evidence for reversible ischemia.
--- NOTE | 2020-08-28 13:17 | EST ---
EXERCISE STRESS . CLINICAL INFORMATION: Baseline rhythm is sinus mechanism, rate of 59, normal axis and intervals. Poor R wave progression. Baseline blood pressure 142/82 mmHg. Patient received injection of Lexiscan. Electrocardiograph monitoring revealed no evidence of diagnostic ischemic ST deviation. Cardiolite was injected per protocol. CONCLUSION: 1. Nondiagnostic electrocardiograph stress testing. 2. Nuclear images will be reported separately. MMODL / IJN: [id number] /
== END | disposition home or self-care (01) ==
LOC: RADNMMAIN 07:57
PROVIDERS: ATTEND Family Medicine
DX: R07.9 Chest pain, unspecified (principal)
CPT/HCPCS: 93017; 78452; A9500; J2785

== ENCOUNTER 2022-06-05 12:43 | Day surgery (SDC) | payer OTHER ==
[2022-06-05] MEDS ORDERED: LACTATED RINGERS 1,000 ML IV SCH (13:17)
[2022-06-05] MEDS ORDERED: LIDOCAINE 1% (10MG/ML) FOR IV START INTRADERMA PRN (13:17)
[2022-06-05 13:29] VITALS: TEMP 97.8
[2022-06-05] MEDS ORDERED: fentaNYL (PF) 50 MCG/ML 2 ML AMP ONE (13:49)
[2022-06-05] MEDS ORDERED: IOPAMIDOL M200 10 ML VIAL ONE (13:49)
[2022-06-05] MEDS ORDERED: DEXAMETHASONE SOD PHOSPHATE 10 MG/ML 1 ML VIAL ONE (13:49)
[2022-06-05] MEDS ORDERED: MIDAZOLAM 2 MG/2 ML VIAL ONE (13:49)
[2022-06-05] MEDS ORDERED: IV FLUID CONTINUATION 850 ML IV ONE (14:04)
--- NOTE | 2022-06-05 14:04 | P.PCN ---
Date of Procedure: 06/05/22 Procedure(s) Performed: . PROCEDURE 1. Cervical epidural steroid injection under fluoroscopic guidance, C6-7 (fluoroscopy images available in the radiology department ) 2. Cervical epidurogram. PREOPERATIVE DIAGNOSIS: 1- Cervical herniated Disc Diseases 2- Cervical radiculopathy. POSTOPERATIVE DIAGNOSIS: : 1- Cervical herniated Disc Diseases , 2- Cervical radiculopathy. ANESTHESIA: moderate sedation, with Versed 2 mg and Fentanyl 100 mcg. Sedation start time :1352 Sedation end time : 1358 EBL 0 PROCEDURE INDICATION: The patient with neck pain and radiculitis unresponsive to conservative treatment consents for procedure. PROCEDURE DESCRIPTION / TECHNIQUE: The patient was seen and identified in the preoperative area. Risks, benefits, complications, including but not limited to infections ,bleeding , allergic reactions to the medications ,and not complete pain releife, and alternatives were discussed with the patient, the patient agreed to proceed with the procedure and signed the consent. Patient was taken to the OR and time out was completed. The patient was placed in the prone position on the procedure table. A pillow was placed under the patients chest to increase the cervical interlaminar space. The cervical area was prepped and draped in the usual sterile fashion. Vital signs were closely monitored during the procedure. Conscious sedation was used during the procedure to decrease patients anxiety. Using anterior-posterior fluoroscopy, the C6-7 interlaminar space was identified and the skin over this site was marked and then infiltrated with 1% lidocaine subcutaneously. Subsequently, a 20-gauge 3-1/2-inch Tuohy epidural needle was inserted and advanced toward the epidural space by means of the ``hanging-drop technique and guided by AP and lateral fluoroscopy. The correct needle position in the epidural space was verified with the injection of 2 mL of the water soluble contrast dye Isovue-200 and observing an excellent epidurogram with the epidural spread of the dye, after negative aspiration for blood and CSF and in the absence of paresthesias. then, mixture containing 20 mg Dexamethasone and 2 ml of preservative-free normal saline injected and a washout of epidurogram was seen. Needle was withdrawn intact, skin was cleansed, and bandages were applied. Complications= none. Disposition= patient was placed in supine position and transferred to the recovery room area in stable condition and there was no evidence of upper or lower extremity motor or sensory deficit after the procedure patient was discharged from recovery room after discharge criteria met and home discharge instructions was given by the staff and patient will follow with the pain clinic in 2-4 weeks
--- NOTE | 2022-06-05 14:09 | FL ---
Intraoperative/procedural fluoroscopic services were provided for cervical epidural steroid injection . Total fluoroscopy time is 1.5 seconds with a total of 1 submitted image to PACS. Total DAP [phone] mGym2. Please see the operative note for further details.
[2022-06-05 14:27] VITALS: BP 129/88; PULSE 78; RESP 20
== END 2022-06-05 14:34 | disposition home or self-care (01) ==
LOC: ORPAIN 12:43
PROVIDERS: ATTEND Specialist
DX: M50.123 Cervical disc disorder at C6-C7 level with radiculopathy (principal); Z88.8 Allergy status to other drugs, medicaments and biological substances
CPT/HCPCS: 62321; J2250; J1100; J3010; Q9966

== ENCOUNTER → 2022-07-03 | Outpatient (CLI) | payer OTHER ==
[2022-07-03 09:16] VITALS: BP 141/96; PULSE 85; RESP 20; TEMP 98.7
--- NOTE | 2022-07-03 14:28 | P.PAINPG ---
PQRS Measure Charge Sheet Comment: A 62 yr old male with a history of severe and chronic neck pain secondary to cervical DDD and spondylosis with facet arthropathy without myelopathy presents today for evaluation s/p STEVO C6-C7. Pt states he experienced 80 % pain relief x 4 wks s/p procedure. Pain level is provoked at 2 /10 in intensity, constant, localized in the cervical spine, dull in character w/o shooting pain. Pt states his headaches resolved. Pain is provoked by rotation. Pain is alleviated with medications, topicals, injections, heat, ice, PT twice weekly integrated with massage, repositioning and rest. Interventional pain procedures completed include STEVO C6-C7 Patient is currently on [employer] prn Patient denies any side effects of the medication(s), denies excessive drowsiness or sleepiness, denies suicidal ideation and reports that the current pain medication is helping to control the pain and improve activities of daily living. Patient denies any motor or sensory deficits. Patient denies any fever or night sweats, denies any change in the bowel movements or urination. Physical Examination: -Constitutional: Cooperative. Not in acute distress . - Neurologic: Cranial nerve II to XII intact. No focal neurological deficits. - Psychatric: Alert & oriented x 3. Matching mood & appropriate affect. Judgment and insight intact. - Musculoskeletal: Cervical spine: Muscle bulk/ tone/ strength in the bilateral upper extremities normal Vertebral body tenderness to palpation over Spurling test positive Distraction test positive Facet loading test positive TTP Thoracic spine Muscle bulk / tone/ strength in the bilateral paraspinal muscles normal Vertebral body tender to palpation over Facet loading test positive TTP Lumbar spine: Motor bulk/ tone/ strength lower extremities , thigh and legs : 5/5 Deep tendon reflexes : Normal Knee Jerk. Normal Ankle Jerk . Vertebral body tenderness to palpation over Lumbar Facet Loading Test positive Straight Leg Raise: positive at 30 degrees right side/ left side Gaenslen's Test positive Sacral spine : Severe tenderness over the Sacroiliac joint: right side / left side Range of motion: Flexion of the lumbar spine <60 degrees Range of motion: Extension of the lumbar spine <20 degrees Gaenslen's Test positive R / L Miguelina test: positive right side / left side Thigh Thrust Test positive R / L Sacral Thrust Test positive R/ L Assessment and plan: Chronic neck pain secondary to cervical DDD, spondylosis with facet arthropathy without myelopathy May manage residual pain at home and return to clinic on an as needed basis. All questions answered. I have spent less than 30 minutes on patient care today. Dr Preston was available by phone for the evaluation of this patient. The time was used to review the medical records including relevant urine studies and Prescription history (MAPs), review of the available imaging, evaluation and examination of the patient, coordination of care with the medical staff and if applicable referring physicians, as well as creation of the medical record PQRS Narrative: Smoking Status Current some day smoker Hx Alcohol Use (MH) No Home Medications: Ambulatory Orders Aspirin 81 mg PO DAILY 10/29/18 Bacitracin Zinc Oint 1 applic TOPICAL BID 5 Days #1 tube 10/29/18 Ascorbic Acid [Vitamin C] 1,000 mg PO 05/19/22 Aspirin [Adult Low Dose Aspirin EC] 81 mg PO DAILY 05/19/22 Atorvastatin [Lipitor] 20 mg PO DAILY 05/19/22 Cyclobenzaprine [Flexeril] 1 tab PO Q12HR PRN 05/19/22 Ergocalciferol [Vitamin D2 (1250 Mcg = 62782 Iu)] 1,250 mcg PO DAILY 05/19/22 Famotidine 40 mg PO DAILY 05/19/22 HYDROcodone/APAP 5-325MG [[employer] 5-325] 1 tab PO Q4HR PRN 05/19/22 Orphenadrine Citrate [Orphenadrine Citrate ER] 100 mg PO DAILY 05/19/22 Zinc Gluconate [Zinc] 50 mg PO DAILY 05/19/22 buPROPion SR [Wellbutrin SR] 150 mg PO BID 05/19/22 Controlled Substance Measures - Controlled Substance Measures Is patient prescribed a controlled substance at discharge?: No
== END ==
LOC: PNWHC3 08:57
PROVIDERS: ATTEND Specialist
DX: M50.30 Other cervical disc degeneration, unspecified cervical region (principal); M47.812 Spondylosis without myelopathy or radiculopathy, cervical region; G89.29 Other chronic pain; F17.200 Nicotine dependence, unspecified, uncomplicated; Z79.82 Long term (current) use of aspirin; Z91.048 Other nonmedicinal substance allergy status
CPT/HCPCS: 99211

== ENCOUNTER → 2024-10-04 | Outpatient (CLI) | payer MEDICARE | LOC: CPPFTMAIN 11:18 | PROVIDERS: ATTEND Pediatrics | DX: R06.00 Dyspnea, unspecified (principal); F17.200 Nicotine dependence, unspecified, uncomplicated; Z88.8 Allergy status to other drugs, medicaments and biological substances; Z91.048 Other nonmedicinal substance allergy status | CPT/HCPCS: 94060; 94726; 94729 ==